=== PATIENT | female | born 1950 | race Caucasian/White ===

== ENCOUNTER 2018-12-22 14:39 | Emergency (ER) | payer MEDICARE, OTHER ==
[~2018-12-22] VITALS: Ht 167.6 cm; Wt 63.6 kg
[2018-12-22 14:42] VITALS: Ht 167.6 cm; Wt 63.6 kg
[2018-12-22] MEDS ORDERED: ASPIRIN 81 MG TAB PO STA (16:24)
[2018-12-22] MEDS ORDERED: LORAZEPAM 2 MG INJ IV ONE (16:30)
--- NOTE | 2018-12-22 16:32 | ERD ---
ER Documentation Chief Complaint Chief Complaint stabbing pain @ the left chest area ; non radaiting since tuesday neri ASHTON This is a very pleasant 68-year-old female history of hypertension who presents to the emergency room complaining of chest pain. She states for the past 6 months she is having chest pain that is occasionally squeezing and sharp and usually occurring when she is stressed. She states that recently she lost both of her parents and her . She has been grieving. She sees a grief counselor. She states that every time she agrees she has this discomfort. She denies any exertional pain, no pleuritic pain no recent travel, immobilization. The patient is a non-smoker. No family history of DVT or pulmonary embolism or acute coronary syndrome in a young age. Patient does state compliance with blood pressure medication. she denies any mid back pain, numbness or tingling or motor weakness. ROS All systems reviewed and are negative except as per history of present illness. Medications Home Meds Active Scripts Aspirin* (Aspirin* EC) 81 Mg Tablet.dr, 81 MG PO DAILY for 30 Days, TAB Prov:RYAN MAHER MD 12/22/18 Reported Medications Clonazepam* (Clonazepam*) 0.5 Mg Tablet, 0.5 MG PO QHS PRN for NEEDED, TAB 12/22/18 Amlodipine Besylate* (Amlodipine Besylate*) 10 Mg Tablet, 10 MG PO DAILY, #30 TAB 12/22/18 Losartan Potassium* (Losartan Potassium*) 100 Mg Tablet, 100 MG PO DAILY, TAB 12/22/18 Discontinued Reported Medications Losartan Potassium* (Losartan Potassium*) 25 Mg Tablet, 25 MG PO DAILY, TAB 12/22/18 Allergies Allergies: Coded Allergies: No Known Allergy (Unverified , 12/22/18) PMhx/Soc Medical and Surgical Hx: pt denies Surgical Hx FmHx Family History: No diabetes, No coronary disease Physical Exam Vitals Vital Signs Date Temp Pulse Resp B/P (MAP) Pulse Ox O2 O2 Flow FiO2 Time Delivery Rate 12/22/18 78 16 141/84 96 Room Air 18:57 (103) 12/22/18 98.2 85 24 156/74 99 Room Air 16:32 (101) 12/22/18 144/64 15:42 (90) 12/22/18 98.3 101 26 213/93 97 14:42 (133) Physical Exam General: Well developed, well nourished, no acute distress Head: Normocephalic, atraumatic. Eyes: Pupils equally reactive, EOM intact ENT: Moist mucous membranes Neck: Supple, no lymphadenopathy Respiratory: Lungs clear bilaterally, no distress Cardiovascular: RRR, no murmurs, rubs, or gallops Abdominal: Soft, non-tender, non-distended, no peritoneal signs : Deferred MSK: No edema, no unilateral swelling, 5/5 strength Neurologic: Alert and oriented, moving all extremities, normal speech, no focal weakness, no cerebellar signs Skin: No rash Psych: Occasionally tearful, good insight Result Diagram: 12/22/18 1628 12/22/18 1628 Results 24 hrs Laboratory Tests Test 12/22/18 16:28 12/22/18 18:56 White Blood Count 10.1 10^3/ul Red Blood Count 4.44 10^6/ul Hemoglobin 14.1 g/dl Hematocrit 42.0 % Mean Corpuscular Volume 94.6 fl Mean Corpuscular Hemoglobin 31.8 pg Mean Corpuscular Hemoglobin Concent 33.6 g/dl Red Cell Distribution Width 16.0 % Platelet Count 366 10^3/UL Mean Platelet Volume 10.2 fl Immature Granulocytes % 0.800 % Neutrophils % 58.8 % Lymphocytes % 25.5 % Monocytes % 11.2 % Eosinophils % 2.7 % Basophils % 1.0 % Nucleated Red Blood Cells % 0.2 /100WBC Immature Granulocytes # 0.080 10^3/ul Neutrophils # 5.9 10^3/ul Lymphocytes # 2.6 10^3/ul Monocytes # 1.1 10^3/ul Eosinophils # 0.3 10^3/ul Basophils # 0.1 10^3/ul Nucleated Red Blood Cells # 0.0 10^3/ul Sodium Level 143 mmol/L Potassium Level 3.9 mmol/L Chloride Level 107 mmol/L Carbon Dioxide Level 26 mmol/L Anion Gap 10 Blood Urea Nitrogen 16 mg/dl Creatinine 0.62 mg/dl Est Glomerular Filtrat Rate mL/min > 60 mL/min Glucose Level 125 mg/dl Calcium Level 9.6 mg/dl Troponin I < 0.012 ng/ml < 0.012 ng/ml Current Medications Medications Dose Sig/Kandace Start Time Status Last (Trade) Ordered Route PRN Stop Time Admin Dose Reason Admin Aspirin 162 mg ONCE STAT 12/22/18 DC 12/22/18 (Aspirin) PO 16:24 16:39 12/22/18 16:26 Lorazepam 0.5 mg ONCE ONCE 12/22/18 DC 12/22/18 (Ativan) IV 16:30 16:39 12/22/18 16:31 Procedures/MDM EKG, MONITORS, & DIAGNOSTIC IMAGING: EKG: I reviewed and interpreted a 12-lead EKG. Rhythm: Normal sinus rhythm ST Changes: No contiguous ST segment elevations T waves: No contiguous T wave inversions Impression: No evidence of acute cardiac ischemia Repeat EKG: EKG: I reviewed and interpreted a 12-lead EKG. Rhythm: Normal sinus rhythm ST Changes: No contiguous ST segment elevations T waves: No contiguous T wave inversions Impression: No evidence of acute cardiac ischemia Chest x-ray: I reviewed and interpreted a 1 view of the chest Mediastinum: No enlargement Cardiac silhouette: No cardiomegaly Airspace: Clear lung mcclure bilaterally without evidence of pneumothorax Bones: No evidence of fracture PROCEDURES: None LAB INTERPRETATION: * Negative troponin x2 MEDICAL DECISION MAKING: The patient's history, physical exam and clinical presentation is mostly consistent with stress, anxiety and grief response. The patient exhibits no signs or symptoms concerning for PE, dissection. Given the duration of symptoms, association with stress, grief and no exertional component I doubt acute coronary syndrome. However given the patient's age it would be reasonable to check EKG and troponin. Based on the patient's clinical exam and history and risk factors, I have a much lower clinical concern for pulmonary embolism, acute aortic dissection, pneumothorax, pneumonia, cardiac tamponade HEART Score: 3 MACE Rate: Less than 1.7% Shared Decision Making: We had a conversation regarding risk stratification, MACE rate, and the risks, benefits, alternatives of disposition planning options. Disposition planning: Patient prefers discharge. She would like a serial enzymes at 3-hour interval and discharge if negative. ER COURSE: * Aspirin, Ativan provided * Patient remains asymptomatic and is well-appearing in the emergency room. Her troponins are negative x2. The patient understands risk benefits and alternatives with discharge. The patient can follow-up with primary care physician and strict return precautions were discussed and understood. CONSULTATION: None DISPOSITION PLAN: The patient does not have an identifiable emergent medical condition that warrants inpatient hospitalization at this time. The patient is deemed safe for discharge with outpatient follow-up. We discussed follow up with the patient's primary care doctor within 24 to 48 hours as needed. We also discussed return to the emergency room for worsening symptoms or worsening condition. Outpatient referral: None required Discharge Medications: Daily aspirin Departure Diagnosis: Primary Impression: Chest pain Chest pain type: unspecified Qualified Codes: R07.9 - Chest pain, unspecified Additional Impression: Grieving Condition: Stable RYAN MAHER MD December 22, 2018 16:32
[2018-12-22] MEDS ORDERED: LOSA25TA12 PO (16:55)
[2018-12-22] MEDS ORDERED: LOSA100T15 PO (16:56)
[2018-12-22] MEDS ORDERED: AMLO-147 PO (16:56)
[2018-12-22] MEDS ORDERED: CLON0.5T14 PO (16:57)
[2018-12-22] MEDS ORDERED: ASPI-817 PO (19:41)
[2018-12-22 19:51] VITALS: BP 140/76; PULSE 81; RESP 18
== END 2018-12-22 19:56 | disposition home or self-care (01) ==
LOC: E/R 14:39
DX: R07.9 Chest pain, unspecified (principal); F43.21 Adjustment disorder with depressed mood; I10 Essential (primary) hypertension
CPT/HCPCS: 36415; 71045; 80048; 84484; 85025; 93005; 96374; 99285; J2060